=== PATIENT | female | born 1980 | race Caucasian/White ===

== ENCOUNTER 2016-10-26 20:22 | Emergency (ER) | payer BC ==
[2016-10-26 20:41] VITALS: BP 122/87
[2016-10-26] MEDS ORDERED: Ipratropium 0.5MG/2.5ML NEB* 0.5 MG/2.5 ML NEB.SOLN INH ONE (20:56)
[2016-10-26] MEDS ORDERED: Albuterol 2.5 MG/3 ML NEB.SOL* (0.083%) INH ONE (20:56)
[2016-10-26] MEDS ORDERED: Albuterol HFA INHALER* 8 gm MDI INH ONE (21:50)
[2016-10-26] MEDS ORDERED: predniSONE TAB* 20 MG PO ONE (21:50)
[2016-10-26] MEDS ORDERED: Omeprazole CAP* 20 MG PO ONE (21:51)
--- NOTE | 2016-10-26 21:58 | UC ---
Respiratory Complaint HPI - HPI Summary HPI Summary: 36 yo female with cough/wheeze chest tightness x 3 days no f/c feels shortwinded at times no CP Has used nebs before - History of Current Complaint Chief Complaint: UCGeneralIllness Stated Complaint: SOB,CHEST TIGHTNESS Time Seen by Provider: 10/26/16 20:45 Hx Obtained From: Patient Hx Last Menstrual Period: 10/13/16 Onset/Duration: Gradual Onset, Lasting Hours Timing: Constant Severity Initially: Moderate Severity Currently: Moderate Pain Intensity: 2 Pain Scale Used: 0-10 Numeric Character: Cough: Nonproductive Aggravating Factors: Deep Breaths - talking Associated Signs And Symptoms: Positive: Dyspnea, Wheezing - Allergies/Home Medications Allergies/Adverse Reactions: Allergies Allergy/AdvReac Type Severity Reaction Status Date / Time Bee Venom Allergy Severe Airway Verified 10/26/16 20:41 Obstruction Home Medications: Home Medications Carbamazepine [Tegretol] 200 mg PO 10/26/16 [History] Cyanocobalamin [B-12] 2,000 mcg PO 10/26/16 [History] PMH/Surg Hx/FS Hx/Imm Hx Previously Healthy: Yes Cardiovascular History Of: Denies: Pacemaker/ICD Respiratory History Of: Reports: Bronchitis, Pneumonia Psychological History Of: Reports: Depression - Surgical History Surgical History: Yes Surgery Procedure, Year, and Place: tonsilectomy, appy, 2x c-sections, c- section with vascular surgery in mar 2014 - Family History Known Family History: Positive: None, Diabetes Negative: Cardiac Disease, Hypertension - Social History Alcohol Use: Rare Substance Use Type: None Smoking Status (MU): Never Smoked Tobacco Have You Smoked in the Last Year: No - Immunization History Most Recent Influenza Vaccination: Unknown Most Recent Tetanus Shot: Unknown Most Recent Pneumonia Vaccination: Unknown Review of Systems Constitutional: Negative Skin: Negative Eyes: Negative ENT: Negative Respiratory: Shortness Of Breath, Cough Cardiovascular: Negative Gastrointestinal: Negative - other than dyspepsia fairly often Genitourinary: Negative Motor: Negative Neurovascular: Negative Musculoskeletal: Negative Neurological: Negative Psychological: Negative All Other Systems Reviewed And Are Negative: Yes Physical Exam Triage Information Reviewed: Yes Appearance: Well-Appearing, No Pain Distress, Well-Nourished Vital Signs: Initial Vital Signs Temp 98.7 F 10/26/16 20:33 Pulse 74 10/26/16 20:33 Resp 16 10/26/16 20:33 BP 122/87 10/26/16 20:33 Pulse Ox 99 10/26/16 20:33 Eyes: Positive: Conjunctiva Clear ENT: Positive: Hearing grossly normal, Pharynx normal, TMs normal. Negative: Nasal congestion, Nasal drainage, Tonsillar swelling, Tonsillar exudate Neck: Positive: Supple, Nontender Respiratory: Positive: No respiratory distress, No accessory muscle use, Decreased breath sounds, Wheezing Cardiovascular: Positive: RRR, No Murmur Musculoskeletal: Positive: ROM Intact, No Edema Neurological: Positive: Alert, Fatigued Psychological Exam: Normal Skin Exam: Normal UC Diagnostic Evaluation - Laboratory O2 Sat by Pulse Oximetry: 99 - normal/not hypoxic Respiratory Course/Dx - Differential Dx/Diagnosis Provider Diagnoses: bronchospasm Discharge - Discharge Plan Condition: Stable Disposition: HOME Prescriptions: Omeprazole CAP* [Prilosec CAP* 20 MG] 20 mg PO BEDTIME #14 cap. Prednisone [Deltasone] 40 mg PO DAILY #8 tab Patient Education Materials: Bronchospasm (ED) Referrals: Jeannette Kelly NP [Primary Care Provider] - 4 Days Additional Instructions: recheck for worsening symptoms
== END 2016-10-26 22:16 | disposition home or self-care (01) ==
LOC: UCEAST 20:22
DX: J98.01 Acute bronchospasm (principal); F32.9 Major depressive disorder, single episode, unspecified; Z91.030 Bee allergy status; Z87.01 Personal history of pneumonia (recurrent)
CPT/HCPCS: 99213; A9270-GY; G0463; J7512; J7644

== ENCOUNTER 2017-02-21 18:39 | Emergency (ER) | payer BC ==
[2017-02-21] MEDS ORDERED: Ondansetron INJ* 2 MG/ML VIAL IV ONE (20:36)
[2017-02-21] MEDS ORDERED: Morphine INJ* 4 MG/ML 1 ML SYRINGE IV ONE (20:36)
[2017-02-21] MEDS: NS 0.9% 1000 ML* 2,000 ML IV ONE ×2 (21:00→21:03)
[2017-02-21] MEDS ORDERED: diPHENhydraMINE IV* 50 MG/ML 1 ml VIAL (BENADRYL) ONE (21:09)
[2017-02-21] MEDS ORDERED: LORazepam INJ* 2 MG/ML 1 ML VIAL ONE (21:12)
[2017-02-21 21:48] LABS: Hematocrit 37 % (35-47); Hemoglobin 12.3 g/dl (12.0-16.0); Mean Corpuscular HGB Conc 33 g/dl (31-36); Mean Corpuscular Hemoglobin 29 pg (27-31); Mean Corpuscular Volume 87 fL (80-97); Mean Platelet Volume 7 um3 (7.4-10.4); Red Blood Count 4.25 10^6/ul (4.0-5.4); Red Cell Distribution Width 13 % (10.5-15); White Blood Count 14.3 10^3/ul (3.5-10.8)
[2017-02-21 22:00] LABS: ALT 23 U/L (7-52); AST 19 U/L (13-39); Albumin 3.7 g/dL (3.2-5.2); Alkaline Phosphatase 85 U/L (34-104); Anion Gap 7 mmol/L (2-11); BUN/Creatinine Ratio 30.9 (8-20); Blood Urea Nitrogen 21 mg/dL (6-24); C Reactive Protein 3.82 mg/L (< 5.00); CO2 Carbon Dioxide 23 mmol/L (22-32); Calcium 8.7 mg/dL (8.6-10.3); Chloride 106 mmol/L (101-111); Creatine Kinase 92 U/L (10-223); EGFR African American 127.4 (>60); Globulin 2.8 g/dL (2-4); Glucose 100 mg/dL (70-100); Lipase 25 U/L (11.0-82.0); Potassium 3.4 mmol/L (3.5-5.0); Sodium 136 mmol/L (133-145); Total Protein 6.5 g/dL (6.4-8.9)
[2017-02-21] MEDS ORDERED: diPHENhydraMINE IV* 50 MG/ML 1 ml VIAL (BENADRYL) SLOW PUSH ONE (22:01)
[2017-02-21] MEDS ORDERED: LORazepam INJ* 2 MG/ML 1 ML VIAL IV PUSH ONE (22:02)
[2017-02-21 22:15] LABS: Urine Bilirubin Negative (Negative); Urine Glucose Negative (Negative); Urine Nitrite Negative (Negative)
--- NOTE | 2017-02-21 22:55 | ED ---
Bautista Regan Benjamin, scribed for Paulino Duncan MD on 02/21/17 at 2037 . Abdominal Pain/Female - HPI Summary HPI Summary: 36yo female s/p laparoscopic hysteroscopy last at [place] to check the fallopian tuves for fertility problems and painful ovulation, that eventually found endometriosis and removed 2 cysts. Pt now reports pain in her incision site, nausea, fever, chills, night sweats, bloated stomach, dizziness, exhaustion, SOB, and painful BM. Denies vaginal bleeding. No urinary symptoms. Pt has hx of 3 years ago that had very close incision site to her surgery last . - History of Current Complaint Chief Complaint: EDAbdPain Stated Complaint: NAUSEA/DIZZIENESS/BLOATING/MINOR BLEEDING Time Seen by Provider: 02/21/17 20:20 Hx Obtained From: Patient, Family/Supervisor Last Model Department - Hx Last Menstrual Period: 10/13/16 Onset/Duration: Gradual Onset, Lasting Days, Still Present Timing: Constant Severity Initially: Moderate Severity Currently: Moderate Pain Intensity: 5 Pain Scale Used: 0-10 Numeric Location: Discrete At: RLQ, Discrete At: LLQ, Suprapubic, Umbilical Radiates: No Character: Other: - "pulling" Aggravating Factor(s): Nothing Alleviating Factor(s): Nothing Associated Signs and Symptoms: Positive: Diaphoresis, Fever, Dizzy, Constipation , Nausea. Negative: Urinary Symptoms, Decreased Appetite, Vaginal Bleeding, Vaginal Discharge Allergies/Adverse Reactions: Allergies Allergy/AdvReac Type Severity Reaction Status Date / Time Bee Venom Allergy Severe Airway Verified 10/26/16 20:41 Obstruction PMH/Surg Hx/FS Hx/Imm Hx Endocrine/Hematology History: Reports: Hx Unexplained Bleeding - extreme bleeding from c section Cardiovascular History: Denies: Hx Pacemaker/ICD Respiratory History: Reports: Hx Pneumonia Sensory History: Denies: Hx Hearing Aid Psychiatric History: Reports: Hx Depression Denies: Hx Panic Disorder - Surgical History Surgery Procedure, Year, and Place: tonsilectomy, appy, 2x c-sections, c- section with vascular surgery in mar 2014 - Immunization History Date of Tetanus Vaccine: Unk Date of Influenza Vaccine: May Infectious Disease History: Denies: Traveled Outside the [place] in Last 30 Days - Family History Known Family History: Positive: None, Diabetes Negative: Cardiac Disease, Hypertension - Social History Occupation: Employed Full-time Lives: With Family Alcohol Use: Rare Substance Use Type: Reports: None Smoking Status (MU): Never Smoked Tobacco Have You Smoked in the Last Year: No Review of Systems Positive: Fever, Chills, Fatigue, Skin Diaphoresis Eyes: Negative ENT: Negative Cardiovascular: Negative Negative: Palpitations, Chest Pain Respiratory: Negative Positive: Shortness Of Breath. Negative: Cough Positive: Abdominal Pain, Nausea. Negative: Vomiting, Diarrhea Positive: no symptoms reported Musculoskeletal: Negative Negative: Arthralgia, Myalgia Skin: Negative Negative: Rash, Bruising Neurological: Other - dizziness Positive: Weakness Psychological: Normal All Other Systems Reviewed And Are Negative: Yes Physical Exam Triage Information Reviewed: Yes Vital Signs On Initial Exam: Initial Vitals Temp Pulse Resp BP Pulse Ox 99.3 F 86 20 128/88 100 02/21/17 18:44 02/21/17 18:44 02/21/17 18:44 02/21/17 18:44 02/21/17 18:44 Vital Signs Reviewed: Yes Appearance: Positive: Well-Appearing, Well-Nourished, Pain Distress - mild Skin: Positive: Warm, Skin Color Reflects Adequate Perfusion, Dry Head/Face: Positive: Normal Head/Face Inspection Eyes: Positive: EOMI, MOR ENT: Positive: Normal ENT inspection, Hearing grossly normal Neck: Positive: Supple, Nontender Respiratory/Lung Sounds: Positive: Clear to Auscultation, Breath Sounds Present Cardiovascular: Positive: RRR, Pulses are Symmetrical in both Upper and Lower Extremities Abdomen Description: Positive: Soft, Other: - INCISION SITES: suprapubic incision, 3cm long, with steristrips on. No erythema, no drainage, no tenderness. Umbilical incision also no erythema, no drainage, no tenderness. Mild suprapubic, RLQ, and LLQ tenderness. Upper abdomen non tender. Bowel Sounds: Positive: Present Musculoskeletal: Positive: Strength/ROM Intact Neurological: Positive: Sensory/Motor Intact, Alert, Oriented to Person Place, Time Psychiatric: Positive: Affect/Mood Appropriate Diagnostics - Vital Signs Vital Signs Temp Pulse Resp BP Pulse Ox 02/21/17 18:44 99.3 F 86 20 128/88 100 - Laboratory Lab Results: Lab Results 02/21/17 02/21/17 02/21/17 Range/Units 21:20 21:20 21:20 WBC 14.3 H (3.5-10.8) 10^3/ul RBC 4.25 (4.0-5.4) 10^6/ul Hgb 12.3 (12.0-16.0) g/dl Hct 37 (35-47) % MCV 87 (80-97) fL MCH 29 (27-31) pg MCHC 33 (31-36) g/dl RDW 13 (10.5-15) % Plt Count 218 (150-450) 10^3/ul MPV 7 L (7.4-10.4) um3 Neut % (Auto) 55.0 (38-83) % Lymph % (Auto) 30.5 (25-47) % Lenoir % (Auto) 10.4 H (1-9) % Eos % (Auto) 3.7 (0-6) % Baso % (Auto) 0.4 (0-2) % Absolute Neuts (auto) 7.9 H (1.5-7.7) 10^3/ul Absolute Lymphs (auto) 4.4 (1.0-4.8) 10^3/ul Absolute Monos (auto) 1.5 H (0-0.8) 10^3/ul Absolute Eos (auto) 0.5 (0-0.6) 10^3/ul Absolute Basos (auto) 0.1 (0-0.2) 10^3/ul Absolute Nucleated RBC 0 10^3/ul Nucleated RBC % 0 INR (Anticoag Therapy) 0.91 (0.89-1.11) APTT 31.1 (26.0-36.3) seconds Sodium 136 (133-145) mmol/L Potassium 3.4 L (3.5-5.0) mmol/L Chloride 106 (101-111) mmol/L Carbon Dioxide 23 (22-32) mmol/L Anion Gap 7 (2-11) mmol/L BUN 21 (6-24) mg/dL Creatinine 0.68 (0.51-0.95) mg/dL Est GFR ( Amer) 127.4 (>60) Est GFR (Non-Af Amer) 99.0 (>60) BUN/Creatinine Ratio 30.9 H (8-20) Glucose 100 (70-100) mg/dL Lactic Acid (0.5-2.0) mmol/L Calcium 8.7 (8.6-10.3) mg/dL Total Bilirubin 0.60 (0.2-1.0) mg/dL AST 19 (13-39) U/L ALT 23 (7-52) U/L Alkaline Phosphatase 85 (34-104) U/L Total Creatine Kinase 92 (10-223) U/L C-Reactive Protein 3.82 (< 5.00) mg/L Total Protein 6.5 (6.4-8.9) g/dL Albumin 3.7 (3.2-5.2) g/dL Globulin 2.8 (2-4) g/dL Albumin/Globulin Ratio 1.3 (1-3) Lipase 25 (11.0-82.0) U/L Beta HCG, Quant < 0.60 mIU/mL Urine Color Urine Appearance Urine pH (5-9) Ur Specific Crowley (1.010-1.030) Urine Protein (Negative) Urine Ketones (Negative) Urine Blood (Negative) Urine Nitrate (Negative) Urine Bilirubin (Negative) Urine Urobilinogen (Negative) Ur Leukocyte Esterase (Negative) Urine Glucose (Negative) 02/21/17 02/21/17 Range/Units 21:20 21:38 WBC (3.5-10.8) 10^3/ul RBC (4.0-5.4) 10^6/ul Hgb (12.0-16.0) g/dl Hct (35-47) % MCV (80-97) fL MCH (27-31) pg MCHC (31-36) g/dl RDW (10.5-15) % Plt Count (150-450) 10^3/ul MPV (7.4-10.4) um3 Neut % (Auto) (38-83) % Lymph % (Auto) (25-47) % Lenoir % (Auto) (1-9) % Eos % (Auto) (0-6) % Baso % (Auto) (0-2) % Absolute Neuts (auto) (1.5-7.7) 10^3/ul Absolute Lymphs (auto) (1.0-4.8) 10^3/ul Absolute Monos (auto) (0-0.8) 10^3/ul Absolute Eos (auto) (0-0.6) 10^3/ul Absolute Basos (auto) (0-0.2) 10^3/ul Absolute Nucleated RBC 10^3/ul Nucleated RBC % INR (Anticoag Therapy) (0.89-1.11) APTT (26.0-36.3) seconds Sodium (133-145) mmol/L Potassium (3.5-5.0) mmol/L Chloride (101-111) mmol/L Carbon Dioxide (22-32) mmol/L Anion Gap (2-11) mmol/L BUN (6-24) mg/dL Creatinine (0.51-0.95) mg/dL Est GFR ( Amer) (>60) Est GFR (Non-Af Amer) (>60) BUN/Creatinine Ratio (8-20) Glucose (70-100) mg/dL Lactic Acid 2.6 H* (0.5-2.0) mmol/L Calcium (8.6-10.3) mg/dL Total Bilirubin (0.2-1.0) mg/dL AST (13-39) U/L ALT (7-52) U/L Alkaline Phosphatase (34-104) U/L Total Creatine Kinase (10-223) U/L C-Reactive Protein (< 5.00) mg/L Total Protein (6.4-8.9) g/dL Albumin (3.2-5.2) g/dL Globulin (2-4) g/dL Albumin/Globulin Ratio (1-3) Lipase (11.0-82.0) U/L Beta HCG, Quant mIU/mL Urine Color Straw Urine Appearance Clear Urine pH 7.0 (5-9) Ur Specific Crowley 1.011 (1.010-1.030) Urine Protein Negative (Negative) Urine Ketones Negative (Negative) Urine Blood Negative (Negative) Urine Nitrate Negative (Negative) Urine Bilirubin Negative (Negative) Urine Urobilinogen Negative (Negative) Ur Leukocyte Esterase Negative (Negative) Urine Glucose Negative (Negative) Result Diagrams: 02/21/17 21:20 02/21/17 21:20 Lab Statement: Any lab studies that have been ordered have been reviewed, and results considered in the medical decision making process. Abdominal Pain Fem Course/Dx - Course Course Of Treatment: Reviewed pts medication and allergy lists. Blood pressure noted. Pt is signed out to Dr. Rosas (Emergency Physician) at 21:00. Pending CT and US reports. PATIENT HAD AN AGITATION REACTION AFTER BEING GIVEN ZOFRAN AND MORPHINE IV. MOST PROBABLE REACTION WAS TO ZOFRAN. PATIENT GIVEN BENADRYL 50MG IV AND ATIVAN 1MG IV WITH RESOLUTION OF REACTION. U/S AND CT PENDING AT SHIFT CHANGE. PATIENT SIGNED OUT TO DR ROSAS. - Diagnoses Provider Diagnoses: Abdominal pain, Medication reaction Discharge - Discharge Plan Condition: Stable Disposition: OTHER Discharge Disposition Comment: . Referrals: Jeannette Kelly NP [Primary Care Provider] - The documentation as recorded by the Bautista lund Benjamin accurately reflects the service I personally performed and the decisions made by me, Paulino Duncan MD.
[2017-02-21] MEDS ORDERED: Iohexol 300* (CONTRAST) 10 ML SDV IV ONE (23:42)
[2017-02-22 02:07] VITALS: BP 104/65
--- NOTE | 2017-02-22 02:10 | ED ---
Mateusz Regan Rebecca, scribed for Francesco Garcia on 02/21/17 at 2343 . Progress - Progress Note Progress Note: Pt was signed out from Dr. Duncan, pending disposition, awaiting Pelvic US. - Results/Orders Results/Orders: Pelvis US, as read by radiologist reveals: 2.6 cm complex left ovarian cyst may be hemorrhagic in nature or endometrioma but demonstrates normal flow. Suggest six-week followup ultrasound to ensure cyst resolution. ED physician reviewed radiology report and agrees. CT Abd/Pel as read by radiologist reveals: 2.5 cm slightl complex left ovarian cyst, possibly an endometrium, without free fluid. Small bilateral pleural effusions. Small hiatal hernia. ED physician reviewed radiology report and agrees. Re-Evaluation - Re-Evaluation First Eval Re-Evaluation Time: 01:53 Change: Improved Comment: Discussed results and D/C plan. Course/Dx - Course Course Of Treatment: Pt was signed out from Dr. Duncan, pending dispo, awaiting CT and US. CT Abd/Pel and Pelvic US results outlined above. Upon reevaluation, pt's sx have improved. She is stable and will be D/C to home with Dx of abdominal pain and ovarian cysts with an Rx for Naproxen and a follow up with her [facility] APPRAISER. She understands and agrees. Elevated BP noted. - Diagnoses Provider Diagnoses: Abdominal pain, Ovarian cyst The documentation as recorded by the Mateusz lund Rebecca accurately reflects the service I personally performed and the decisions made by , Francesco Garcia.
--- NOTE | 2017-02-22 07:32 | RAD ---
INDICATION: Lower abdominal and pelvic pain, history of endometriosis. COMPARISON: There are no prior studies available for comparison. TECHNIQUE: Multiple real-time transvaginal images of the pelvis were obtained. FINDINGS: The uterus is normal in size, shape and echogenicity. The uterus measured 7.6 x 3.3 x 4.7 cm. The endometrial echo measured 1.0 cm in thickness. There are several nabothian cysts present. The right ovary measured 2.8 x 2.0 x 2.0 cm. The left ovary measured 3.8 x 3.0 x 3.1 cm. There is vascular flow within both ovaries. There is a slightly complex cyst present within the left ovary measured 2.5 x 2.6 x 2.2 No free intraperitoneal fluid is seen. IMPRESSION: 2.6 CM COMPLEX LEFT OVARIAN CYST POSSIBLY A HEMORRHAGIC CYST OR ENDOMETRIOMA ALTHOUGH NONSPECIFIC. RECOMMEND A FOLLOW-UP PELVIC ULTRASOUND IN APPROXIMATELY 6 WEEKS TIME.
--- NOTE | 2017-02-22 08:07 | RAD ---
INDICATION: Lower abdominal pain status post laparoscopic surgery February 15, 2017, endometriosis. COMPARISON: Comparison is made with a prior pelvic ultrasound from February 21, 2017. TECHNIQUE: A CT scan of the abdomen and pelvis was performed with intravenous and oral contrast following intravenous injection of 109 ml of Omnipaque 300 nonionic contrast. Contiguous axial sections were obtained from the lung bases through the symphysis pubis. Images were reconstructed in the coronal and sagittal planes. FINDINGS: Images through the lung bases demonstrate small bilateral pleural effusions and mild dependent bilateral lower lobe infiltrates. The liver and spleen are normal in size. There is a tiny 0.5 cm hypodense lesion in the left hepatic lobe too small to characterize by CT although likely representing a cyst. No other focal lateral malleolus are seen. No calcific gallstones are noted. The pancreas appears to be within normal limits. The kidneys and adrenal glands are normal in size. No hydronephrosis is seen. No significant focal renal abnormality is seen. The aorta is normal in caliber and demonstrates homogeneous contrast opacification. No significant enlarged retroperitoneal lymph nodes are seen. There is a small hiatal hernia. The stomach, small and large bowel appear nondistended. The appendix is within normal limits. There is mild descending and sigmoid diverticulosis without evidence for diverticulitis. The uterus is anteverted and normal in size. There is a 2.8 cm complex left ovarian cyst. No free intraperitoneal air or fluid is seen. No significant focal osseous abnormality is seen. IMPRESSION: 1. 2.8 CM COMPLEX LEFT OVARIAN CYST. RECOMMEND A FOLLOW-UP PELVIC ULTRASOUND IN 6 WEEKS TIME FOR FURTHER EVALUATION. 2. SMALL BILATERAL PLEURAL EFFUSIONS AND MINIMAL SUBSEGMENTAL ATELECTASIS. 3. SMALL HIATAL HERNIA.
== END 2017-02-22 02:06 ==
LOC: ED 18:39
DX: R10.9 Unspecified abdominal pain (principal); T50.905A Adverse effect of unspecified drugs, medicaments and biological substances, initial encounter; N83.209 Unspecified ovarian cyst, unspecified side; R50.9 Fever, unspecified; R11.0 Nausea; R61 Generalized hyperhidrosis; R06.2 Wheezing; Y92.9 Unspecified place or not applicable
CPT/HCPCS: 36415; 74177; 76830; 80053; 81003; 82550; 83605; 83690; 84702; 85025; 85610; 85730; 86140; 96374; 96375; 99284; J1200; J2060; J2270; J2405; Q9967

== ENCOUNTER 2018-05-26 20:33 | Emergency (ER) | payer BC ==
[2018-05-26] MEDS ORDERED: Tetan/Diph/Pertus SYR(Tdap)* 0.5 ML SYR(BOOSTRIX) use SYR IM ONE (21:17)
--- NOTE | 2018-05-26 21:42 | ED ---
Laceration/Wound HPI - HPI Summary HPI Summary: 38 year old female presents with left thumb laceration today. She states she cut it when tried to open a can. No active bleeding. She is not sure last tetanus was. Has full range of motion. No numbness or tingling. she is right- handed. Has no medical conditions. No other injury. - History of Current Complaint Stated Complaint: LEFT THUMB LAC Time Seen by Provider: 05/26/18 20:45 Hx Last Menstrual Period: 10/13/16 Pain Intensity: 2 - Allergy/Home Medications Allergies/Adverse Reactions: Allergies Allergy/AdvReac Type Severity Reaction Status Date / Time bee venom protein (honey bee) Allergy Unknown Verified 05/26/18 20:59 Reaction Details ondansetron [From Zofran] Allergy Unknown Verified 05/26/18 20:59 Reaction Details Home Medications: Home Medications Famotidine 05/26/18 [History] Metformin ER (NF) 500 mg .ROUTE TID 05/26/18 [History Confirmed 05/26/18] Prozac TID 05/26/18 [History] PMH/Surg Hx/FS Hx/Imm Hx Endocrine/Hematology History: Reports: Hx Unexplained Bleeding - extreme bleeding from c section Cardiovascular History: Denies: Hx Pacemaker/ICD Respiratory History: Reports: Hx Pneumonia Sensory History: Denies: Hx Hearing Aid Psychiatric History: Reports: Hx Depression Denies: Hx Panic Disorder - Cancer History Hx Chemotherapy: No Hx Radiation Therapy: No - Surgical History Surgery Procedure, Year, and Place: tonsilectomy, appy, 2x c-sections, c- section with vascular surgery in mar 2014 - Immunization History Date of Tetanus Vaccine: Unk Date of Influenza Vaccine: May Infectious Disease History: No Infectious Disease History: Denies: Traveled Outside the [place] in Last 30 Days - Family History Known Family History: Positive: None, Diabetes Negative: Cardiac Disease, Hypertension - Social History Alcohol Use: Rare Substance Use Type: Reports: None Smoking Status (MU): Never Smoked Tobacco Have You Smoked in the Last Year: No Review of Systems Negative: Fever Negative: Chest Pain Negative: Shortness Of Breath Positive: Other - left thumb laceration All Other Systems Reviewed And Are Negative: Yes Physical Exam Triage Information Reviewed: Yes Vital Signs On Initial Exam: Initial Vitals Temp Pulse Resp BP Pulse Ox 98.4 F 67 18 129/81 98 05/26/18 20:38 05/26/18 20:38 05/26/18 20:38 05/26/18 20:38 05/26/18 20:38 Vital Signs Reviewed: Yes Appearance: Positive: Well-Appearing Skin: Positive: Warm, Dry, Other - 2 1/2cm by 1/2cm laceration of left thumb at IP Head/Face: Positive: Normal Head/Face Inspection Eyes: Positive: Normal, Conjunctiva Clear ENT: Positive: Pharynx normal Respiratory/Lung Sounds: Positive: Clear to Auscultation, Breath Sounds Present Cardiovascular: Positive: Normal, RRR Musculoskeletal: Positive: Strength/ROM Intact - left thumb laceration, Other - capillary refill<2secs Neurological: Positive: Normal Psychiatric: Positive: Normal Procedures - Laceration/Wound Repair left thumb Location: upper extremity - left thumb Description: Linear Anesthesia: Local, 1.0%, Lido Length, Depth and Shape: 2 1/2cmby 1/2cm, linear Betadine Prep?: No Irrigated w/ Saline (ccs): 100 Laceration/Wound Explored: clean, no foreign body removed Closure: Single Layer Suture Type: Vicryl Number of Sutures: 3 Layer Closure?: No Sterile Dressing Applied?: Yes - telfa, finger splint Diagnostics - Vital Signs Vital Signs Temp Pulse Resp BP Pulse Ox 05/26/18 20:38 98.4 F 67 18 129/81 98 - Laboratory Lab Statement: Any lab studies that have been ordered have been reviewed, and results considered in the medical decision making process. Laceration Repair Course/Dx - Course Course Of Treatment: 38 year old female presents with left thumb laceration today. She states she cut it when tried to open a can. No active bleeding. She is not sure last tetanus was. Has full range of motion. No numbness or tingling. she is right-handed. Has no medical conditions. No other injury. On exam has 2 cm by half cm laceration over the IP joint of left thumb. Neurovascular intact. Clean area and closed with 3 sutures done by Violet Black. Place in finger splint. Told to have sutures removed in 7-10 days. tetanus given. Patient understands agrees plan. - Differential Dx Differental Diagnoses: Abrasion, Avulsion, Laceration - Clinical Impression Provider Diagnoses: Laceration of left thumb Discharge - Sign-Out/Discharge Documenting (check all that apply): Patient Departure - Discharge Plan Condition: Good Disposition: HOME Patient Education Materials: Care For Your Stitches (ED) Referrals: Ruby Willard BUTTON RECLAIMER [Primary Care Provider] - Additional Instructions: Keep area in splint, change dressing once a day Keep area clean and dry for 24 hours Take Tylenol or ibuprofen for pain every 6 hours Return to ED or primary for suture removal in 8-10 days Return to ED if develop signs of infection such as fever, spreading redness, or pus formation - Billing Disposition and Condition Condition: GOOD Disposition: Home
[2018-05-26 22:11] VITALS: BP 119/78
== END 2018-05-26 22:10 | disposition home or self-care (01) ==
LOC: ED 20:33
DX: S61.012A Laceration without foreign body of left thumb without damage to nail, initial encounter (principal); W26.8XXA Contact with other sharp object(s), not elsewhere classified, initial encounter; Y92.9 Unspecified place or not applicable
CPT/HCPCS: 12001; 90471; 90715; 99284

== ENCOUNTER 2018-06-03 10:32 | Emergency (ER) | payer BC ==
[2018-06-03 10:41] VITALS: BP 105/74
--- NOTE | 2018-06-03 10:51 | UC ---
HPI Wound/Suture Re-check - HPI Summary HPI Summary: Patient presents to have sutures removed. Patient's had sutures placed in her left thumb. pt without drainage, no erythema, no pain. Not immunocompromised Tdap UTD medications reviewed - History Of Current Complaint Chief Complaint: UCLaceration Stated Complaint: SUTURE REMOVAL Time Seen by Provider: 06/03/18 10:47 Hx Obtained From: Patient, Medical Records Hx Last Menstrual Period: 05/24/18 Pain Intensity: 0 - Allergies/Home Medications Allergies/Adverse Reactions: Allergies Allergy/AdvReac Type Severity Reaction Status Date / Time bee venom protein (honey bee) Allergy Unknown Verified 06/03/18 10:41 Reaction Details ondansetron [From Zofran] Allergy Unknown Verified 06/03/18 10:41 Reaction Details PMH/Surg Hx/FS Hx/Imm Hx Previously Healthy: Yes - Surgical History Surgical History: Yes Surgery Procedure, Year, and Place: tonsilectomy, appy,1 c-sections, with vascular surgery in mar 2014 - Family History Known Family History: Positive: Diabetes, Non-Contributory Negative: Cardiac Disease, Hypertension - Social History Occupation: Employed Full-time Lives: With Family Alcohol Use: Rare Substance Use Type: None Smoking Status (MU): Never Smoked Tobacco Have You Smoked in the Last Year: No - Immunization History Most Recent Influenza Vaccination: Unknown Most Recent Tetanus Shot: Unknown Most Recent Pneumonia Vaccination: Unknown Review of Systems All Other Systems Reviewed And Are Negative: Yes Skin: Positive: Other - sutures left thumb Physical Exam - Summary Physical Exam Summary: Vital Signs Reviewed: Yes A+Ox3, no distress Eyes: Conjunctiva Clear ENT: Hearing grossly normal neck: supple Respiratory: Positive: No respiratory distress, No accessory muscle use Cardiovascular: skin color reflect adequate perfusion Musculoskeletal Exam: DONNELLY x 4 without difficulty full AROm left thumb - IP, MCP joints Neurological: Positive: Alert, ambulatory without difficulty Psychological: Positive: Normal Response To Family Skin: Positive: no rash, no ecchymosis, suture line c/d/i removed 3 simple interrupted sutures without difficulty Vital Signs: Initial Vital Signs Temp 97.8 F 06/03/18 10:38 Pulse 66 06/03/18 10:38 Resp 16 06/03/18 10:38 BP 105/74 06/03/18 10:38 Pulse Ox 100 06/03/18 10:38 Course/Dx - Course Course Of Treatment: pt with laceration left thumb - sutured - here for removal. wound c/d/i. removed sutures. reviewed s/s infection. return precaution - Diagnosis Provider Diagnosis: Visit for suture removal Discharge - Sign-Out/Discharge Documenting (check all that apply): Patient Departure All imaging exams completed and their final reports reviewed: No Studies - Discharge Plan Condition: Stable Disposition: HOME Patient Education Materials: Stitches Removal (ED) Referrals: Ruby Willard NP [Primary Care Provider] - Additional Instructions: Your wound is healing well Continue to monitor for signs of infetion - reddness, red streaking, drainage, odor, pain Okay to take ibuprofen (Advil, Motrin) and tylenol as needed for pain - Billing Disposition and Condition Condition: STABLE Disposition: Home
== END 2018-06-03 11:10 | disposition home or self-care (01) ==
LOC: UCEAST 10:32
DX: S61.012D Laceration without foreign body of left thumb without damage to nail, subsequent encounter (principal); X58.XXXD Exposure to other specified factors, subsequent encounter; Z88.8 Allergy status to other drugs, medicaments and biological substances

== ENCOUNTER 2019-08-06 16:37 | Emergency (ER) | payer BC ==
--- OUTSIDE RECORDS SUMMARY | 2019-08-06 16:43 | XMS REPORT | Continuity of Care Document ---
:1980 External Reference #:[id number] Author Name Edna Jerome MD (transmitted by agent of provider Shantell Corcoran) Address [address] [place] [address] Care Team Providers Name Role Phone Corine Rivera F.N.P. - Family Care Team Information Invoicing Machine Operator [phone] Sharita Zayas NP - Family Care Team Information Invoicing Machine Operator [phone] Problems Active Problems Provider Date Syncope Ender Jacobson M.D. Onset: 08/18/2015 Social History Type Date Description Comments Sex Unknown Tobacco Use Start: Unknown End: Former Cigarette Smoker light smoker in Unknown high school and college ETOH Use Rarely consumes alcohol 1x per month Recreational Drug Use Denies Drug Use Tobacco Use Start: Unknown End: Patient is a former Unknown smoker Smoking Status Reviewed: 12/17/18 Patient is a former smoker Exercise Type/Frequency Exercises sporadically Allergies, Adverse Reactions, Alerts Active Allergies Reaction Severity Comments Date Bee Sting 05/25/2015 Ondansetron dystonic reaction 05/30/2017 Medications Active Medications SIG Qnty Indications Ordering Date Provider Metformin HCL take one tablet by 180tabs Unknown 12/16/2018 1000mg mouth twice a day Tablets Famotidine One tab bid Qutaybeh S. 12/16/2018 40mg/4ML Noah Horne Solution C-Naltrexone 4.5MG One capsule daily Qutaybeh S. 12/16/2018 Noah Horne Fluoxetine HCL 1 by mouth every 60caps Qutaybeh S. 11/16/2017 20mg day (30 mg x 1 Maghaydah, M.D. Capsules week ovulation - menstrual cycle) Melatonin 1 po q hs Unknown 10mg Capsules Vitamin C 1 po qd Unknown 1000mg Tablet Epipen 2-Jamie use as directed Unknown 0.3mg/0.3ML Solution Auto-Inject Complete 1 by mouth every Unknown day 14-0.4mg Tablets Fish Oil Concentrate 1 by mouth every Unknown day 1000mg Capsules Vitamin D-3 1 by mouth every Unknown 5000Iu day Capsules Coq10 St-100 One tab daily Unknown [id number] Capsules Immunizations Description No Information Available Vital Signs Date Vital Result Comment 12/17/2018 8:39am Height 63 inches 5'3" Weight 219.00 lb Heart Rate 82 /min radial, regular BP Systolic Sitting 112 mmHg LA, reg cuff BP Diastolic Sitting 74 mmHg LA, reg cuff BP Systolic Standing 116 mmHg LA, reg cuff BP Diastolic Standing 82 mmHg LA, reg cuff BMI (Body Mass Index) 38.8 kg/m2 Ejection Fraction 60%-65% echo 06/04/15 11/16/2017 1:33pm Height 63 inches 5'3" Weight 243.00 lb w/shoes Heart Rate 70 /min BP Systolic Sitting 120 mmHg lue lg cuff BP Diastolic Sitting 90 mmHg lue lg cuff BMI (Body Mass Index) 43.0 kg/m2 Ejection Fraction 60-65% echo 06/04/2015 Results Description No Information Available Procedures Description No Information Available Medical Devices Description No Information Available Encounters Description No Information Available Assessments Description No Information Available Plan of Treatment 12/17/2018 - Isis Horne M.D.I95.9 Hypotension, [id number] Dizziness and giddinessFollow up:one yr ovE66.9 Obesity, unspecified Functional Status Description No Information Available Mental Status Description No Information Available Referrals Description No Information Available
[2019-08-06 17:04] VITALS: BP 127/85
--- NOTE | 2019-08-06 18:15 | UC ---
Abdominal Pain Female HPI - HPI Summary HPI Summary: Pt has been experiencing abd cramping and one episode of vomiting coffee grounds consistency vomit. abd cramping x 3 wks. She does report having bulimia and purging recently . denies issues w/ etoh. does report some dizziness but she states she often has this due to not eating. +occasional diarrhea. Currently denies bloody stools, fainting, palpitatinos, worrell. has not been eating but drinking fluids well. Urinating well. Does have therapist involved. - History of Current Complaint Chief Complaint: UCAbdominalPain Stated Complaint: ABDOMINAL PAIN Time Seen by Provider: 08/06/19 18:06 Hx Obtained From: Patient Hx Last Menstrual Period: last week Pain Intensity: 5 Pain Scale Used: 0-10 Numeric Location: Diffuse - but occasional RUQ Allergies/Adverse Reactions: Allergies Allergy/AdvReac Type Severity Reaction Status Date / Time bee venom protein (honey bee) Allergy Unknown Verified 08/06/19 17:05 Reaction Details ondansetron [From Zofran] Allergy Unknown Verified 08/06/19 17:05 Reaction Details Home Medications: Home Medications EPINEPHrine [Epipen 2-Jamie] 0.3 mg IM ONCE PRN 05/17/16 [History Confirmed ] Melatonin 20 mg PO BEDTIME 05/17/16 [History Confirmed 08/06/19] [place]-3 Fatty Acids (Nf) [Fish Oil (NF)] 1,000 mg PO DAILY 05/17/16 [History Confirmed 08/06/19] Famotidine 40 mg PO BID 05/26/18 [History Confirmed 08/06/19] Metformin ER (NF) 1,000 mg .ROUTE BID 05/26/18 [History Confirmed 08/06/19] ALPRAZolam [Alprazolam] 1 tab PO DAILY PRN 08/06/19 [History Confirmed 08/06/19] C-Naltrexone 4.5 mg PO DAILY 08/06/19 [History Confirmed 08/06/19] Cholecalciferol (Vitamin D3) [Vitamin D3] 1 tab PO DAILY 08/06/19 [History Confirmed 08/06/19] Cyanocobalamin (Vitamin B-12) [Vitamin B-12] 1 dose PO DAILY 08/06/19 [History Confirmed 08/06/19] Fluoxetine HCl [Prozac] 1 tab PO DAILY 08/06/19 [History Confirmed 08/06/19] Multivitamin [Multivitamins] 1 tab PO DAILY 08/06/19 [History Confirmed 08/06/19 ] Ubidecarenone [Co Q-10] 1 dose PO DAILY 08/06/19 [History Confirmed 08/06/19] PMH/Surg Hx/FS Hx/Imm Hx - Additional Past Medical History Additional PMH: BULIMIA Previously Healthy: Yes Endocrine History: Other - BLOOD SUGAR ISSUES - Surgical History Surgical History: Yes Surgery Procedure, Year, and Place: tonsilectomy,1 c-sections, with vascular surgery in mar 2014. laproscopic surgery - Family History Known Family History: Positive: None, Diabetes, Non-Contributory Negative: Cardiac Disease, Hypertension - Social History Alcohol Use: Rare Substance Use Type: None Smoking Status (MU): Never Smoked Tobacco Have You Smoked in the Last Year: No - Immunization History Most Recent Influenza Vaccination: Unknown Most Recent Tetanus Shot: Unknown Most Recent Pneumonia Vaccination: Unknown Review of Systems All Other Systems Reviewed And Are Negative: Yes Constitutional: Negative: Fever, Chills, Fatigue Skin: Negative: Rash Respiratory: Negative: Shortness Of Breath Gastrointestinal: Positive: Abdominal Pain, Vomiting - X1 W/ COFFEE GROUNDS, Nausea. Negative: Diarrhea, Other - DENIES BLOOD IN STOOL Genitourinary: Negative: Dysuria Neurological/Mental Status: Positive: Other - OCCASIONAL DIZZINESS. Negative: Headache, Weakness Psychological: Positive: Other - _+PURGING Physical Exam Triage Information Reviewed: Yes Appearance: Well-Appearing Vital Signs: Initial Vital Signs Temp 99 F 08/06/19 16:55 Pulse 77 08/06/19 16:55 Resp 18 08/06/19 16:55 BP 127/85 08/06/19 16:55 Pulse Ox 100 08/06/19 16:55 Eyes: Negative: Other: - NO PALE CONJUNCTIVA ENT: Negative: Hoarse voice Neck: Positive: Supple Respiratory: Positive: Lungs clear Abdomen Description: Positive: Soft. Negative: Nontender Neurological: Positive: Alert Psychological: Positive: Other: - DID START CRYING WHEN DISCUSSING HER BULIMIA HX Abd Pain Female Course/Dx - Course Course Of Treatment: Bulimic pt w/ 3 wks of abd cramping/nausea and one episode of vomiting coffee grounds. Vitals stable and her dizziness could be related to the fact that she hasn't eaten solids in many days. There is concern for bleed and I have recommended ED from here. She declines ambulance. She was upset/crying, but we had long disc about risk of what this symptom could be and that we do not have the equipment here to evaluate her fully re: possible bleed. I went through my differential w/ her and she states she will go to ED. - Differential Dx/Diagnosis Differential Diagnosis: Gall Bladder Disease, Peptic Ulcer Disease, Urinary Tract Infection, Other Provider Diagnosis: Coffee ground emesis Discharge ED - Sign-Out/Discharge Documenting (check all that apply): Patient Departure All imaging exams completed and their final reports reviewed: No Studies - Discharge Plan Condition: Stable Disposition: HOME-RECOMMEND TO ED Patient Education Materials: Gastrointestinal Bleeding (ED) Referrals: Jax IBRAHIM,Natalia Vidales NP [Nurse Practitioner] - Joe Franco MD [Medical Doctor] - Myles MCCARTY,Indra Guadarrama [Medical Doctor] - Additional Instructions: Although you may not have a gastrointestinal bleed I have attached some information about this for your review. - Billing Disposition and Condition Condition: STABLE Disposition: Home-Recommend to ED
== END 2019-08-06 18:36 | disposition home health service (06) ==
LOC: UCEAST 16:37
DX: R11.10 Vomiting, unspecified (principal); R10.84 Generalized abdominal pain; R10.11 Right upper quadrant pain; R42 Dizziness and giddiness; Z88.8 Allergy status to other drugs, medicaments and biological substances; Z91.030 Bee allergy status
CPT/HCPCS: 99211; G0463